=== PATIENT | male | born 1935 | race Caucasian/White ===

== ENCOUNTER → 2016-08-06 | Outpatient (CLI) | payer MEDICARE, OTHER ==
--- NOTE | 2016-08-06 20:10 | RADRPT ---
PROCEDURE: XR Right hip and pelvis. CLINICAL INDICATION: Right hip pain. Pelvic pain. TECHNIQUE: Two views. Frontal pelvis and lateral right hip. COMPARISON: 01/10/2015. FINDINGS: There is no fracture or dislocation. The soft tissues are normal. There are mild degenerative changes of both hips with osteophytes noted. There is no joint space narrowing or deformity. There is no lytic or blastic lesion. The upper pelvis is not completely included on the image. IMPRESSION: 1. Mild degenerative changes of both hips. 2. Otherwise unremarkable study. RPTAT: QQ .Kamaljit Soto MD, MD Date Time Electronically viewed and signed by .Kamaljit Soto MD, MD on 08/06/2016 20:10 .R/
--- NOTE | 2016-08-11 06:37 | HKNOTE ---
DATE OF SERVICE: 08/07/2016 MAIN COMPLAINT: Recurrent trochanteric bursitis of the right hip. I gave him a cortisone injection into the trochanteric bursa on the right side 18 months ago and his pain returned again 6 weeks ago. PHYSICAL EXAMINATION GENERAL: A fit looking 80-year-old male. He walks without a walking aid. His gait is normal. EXTREMITIES: Examination of the right hip: A full range of motion without pain, marked tenderness over the right greater trochanter. IMAGING: Plain x-rays of his pelvis and hips obtained today show completely normal hips. DIAGNOSES: 1. Trochanteric bursitis of the right hip. 2. Mild degenerative osteoarthritis of both knees. 3. Hypertension. 4. Hypothyroid. MANAGEMENT: Under sterile conditions, the patient was given injection of 2 mL of Kenalog and 6 mL o f 2% lidocaine into the right trochanteric bursa, and he will be seen again as necessary. Dictated By: CHARLENE CARDENAS/CARLITO Conf#: [id number] DID#: [id number]
== END | disposition home or self-care (01) ==
LOC: HKI 14:53
DX: M70.61 Trochanteric bursitis, right hip (principal); M17.0 Bilateral primary osteoarthritis of knee; I10 Essential (primary) hypertension; E03.9 Hypothyroidism, unspecified
CPT/HCPCS: 20610; 73502; G0463

== ENCOUNTER → 2016-12-08 | Outpatient (CLI) | payer MEDICARE, OTHER ==
--- NOTE | 2016-12-09 07:02 | HKNOTE ---
DATE OF SERVICE: 12/08/2016 HISTORY OF PRESENT ILLNESS: The patient has a recurrence of trochanteric bursitis over the right thigh. The cortisone injection I gave him at the last visit helped him a great deal and lasted for "80 days." PHYSICAL EXAMINATION: Blood pressure 140/80, temperature 98.8. EXAMINATION OF THE RIGHT HIP: Trochanteric bursitis right hip. Management under sterile conditions, given injection of 2 cc of Kenalog and 6 cc 2 percent lidocaine into the trochanteric bursa. He will be seen again as necessary. Dictated By: Dave Roldan MD /flavia/ /Document#: [id number]
== END | disposition home or self-care (01) ==
LOC: HKI 13:37
DX: M70.61 Trochanteric bursitis, right hip (principal)

== ENCOUNTER → 2017-02-04 | Outpatient (CLI) | payer MEDICARE, OTHER ==
--- NOTE | 2017-02-05 04:36 | HKNOTE ---
DATE OF SERVICE: 02/04/2017 HISTORY OF MAIN COMPLAINT: The patient had a cortisone injection into his right trochanteric bursa about a month ago. He indicates that he had good relief for about 24 hours but then the pain returned. He thinks that the pain may be in a different location at this time. He is going on safari to [facility] soon and he would like to be "cured of my pain." He is an incredible man. He is 81 years old. Yesterday he rode a bike for 16 miles. Had no pain thereafter. He works out in a gym 3 times a week 2 hours at a time, has no pain after he comes out of that. However, he does get pain in the right greater trochanter on standing or on leaning forward to brush his teeth. He does not have any back pain. He had spinal surgery in 2005, which was very successful. The pain is still localized mainly over the greater trochanter. No radiation of pain from that point to his lower back or down his leg. PHYSICAL EXAMINATION: The right hip has full range of motion without pain. IMAGING: Of the right hip again reviewed today. There is no interosseous pathology as far as I can tell. There is mild tenderness over the right greater trochanter and extending along the iliotibial band for about 4 inches. DIAGNOSES: 1. Trochanteric bursitis. 2. Iliotibial tendinitis. MANAGEMENT: Under sterile conditions, the patient was given injection of a total of 2 cc of Kenalog and 6 cc 2 percent lidocaine into all the tender areas along the iliotibial band and over the trochanteric bursa. He will be seen again as necessary for further evaluation and treatment. Dictated By: Dave Roldan MD /flavia/aysha /Document#: [id number]
== END | disposition home or self-care (01) ==
LOC: HKI 09:23
DX: M70.61 Trochanteric bursitis, right hip (principal); Y93.55 Activity, bike riding; M76.31 Iliotibial band syndrome, right leg
CPT/HCPCS: 20610; G0463

== ENCOUNTER → 2017-04-27 | Outpatient (CLI) | payer MEDICARE, OTHER ==
--- NOTE | 2017-04-28 10:43 | HKNOTE ---
DATE OF SERVICE: The patient has recurrence of trochanteric bursitis of the right hip. He requests a repeat cortiso ne injection into the bursa. PHYSICAL EXAMINATION: VITAL SIGNS: Height 5 feet 7, weight 198 pounds, blood pressure 145/70, temperature 98.2. On physical examination, the right hip, there is marked tenderness over the right greater trochanter . Otherwise, the hip has a full range of motion without pain. Neurological examination of the lowe r extremities is normal. DIAGNOSIS: Trochanteric bursitis of the right hip. MANAGEMENT: Under sterile conditions, given injection of 2 mL of Kenalog and 6 mL of 2% lidocaine i nto the trochanteric bursa, and he will be seen again as necessary. Dictated By: CHARLENE CARDENAS/CARLITO Conf#: [id number] DID#: [id number]
== END | disposition home or self-care (01) ==
LOC: HKI 10:11
DX: M70.61 Trochanteric bursitis, right hip (principal)
CPT/HCPCS: 20610; G0463

== ENCOUNTER → 2017-08-09 | Outpatient (CLI) | END | disposition home or self-care (01) ==